=== PATIENT | female | born 1930 | race Caucasian/White ===

== ENCOUNTER → 2018-01-22 13:43 | Outpatient (CLI) | payer MEDICARE | END | disposition home or self-care (01) | LOC: D.MRI 13:43 | DX: H53.9 Unspecified visual disturbance (principal) ==

== ENCOUNTER → 2018-01-29 12:49 | Outpatient (CLI) | payer MEDICARE ==
[~2018-01-29] VITALS: Ht 157.5 cm; Wt 78.0 kg
[2018-01-29 14:17] VITALS: Ht 157.5 cm; Wt 78.0 kg
== END | disposition home or self-care (01) ==
LOC: D.FANS 12:49
DX: E13.65 Other specified diabetes mellitus with hyperglycemia (principal)